=== PATIENT | female | born 2000 | race Caucasian/White ===

== ENCOUNTER → 2024-03-04 | Day surgery (SDC) | payer BC ==
[~2024-03-04] MED LIST: Gadobenate Dimeglumine 2 ML, Sodium Chloride 0.9% 250 ML 10 ML, Iopamidol 8 ML, Lidocai... FS SCH; Sodium Bicarbonate 2.5 MEQ/5 ML SDV ONE
== END ==
LOC: RAD 08:52
PROVIDERS: ATTEND Family Medicine Sports Medicine
PROC: BP3LYZZ Magnetic Resonance Imaging (MRI) of Right Wrist using Other Contrast (ICD-10-PCS; principal; 2024-03-04)
DX: M25.531 Pain in right wrist (principal)
CPT/HCPCS: 25246; 77002; A9577; J0171; J7050; Q9967